=== PATIENT | female | born 1990 | race African-American/Black ===

== ENCOUNTER 2022-03-29 09:21 | Emergency (ER) | payer SELFPAY | END 2022-03-29 10:56 | disposition home or self-care (01) | LOC: ERS 09:21 | DX: J36 Peritonsillar abscess (principal) | CPT/HCPCS: 99282 ==

== ENCOUNTER 2022-12-03 20:48 | Emergency (ER) | payer SELFPAY ==
[2022-12-03] MEDS ORDERED: Ketorolac Tromethamine 30 MG/ML VIAL ONE (21:43)
[2022-12-03] MEDS ORDERED: Morphine 4 MG/ML VIAL ONE (22:47)
== END 2022-12-03 22:55 | disposition home or self-care (01) ==
LOC: ERS 20:48
DX: S29.011A Strain of muscle and tendon of front wall of thorax, initial encounter (principal); F17.210 Nicotine dependence, cigarettes, uncomplicated
CPT/HCPCS: 36415; 71045; 84484; 93005; 96372; J1885; J2270